=== PATIENT | male | born 1995 | race Caucasian/White ===

== ENCOUNTER 2017-07-03 23:11 | Emergency (ER) | payer OTHER ==
[~2017-07-03] VITALS: Ht 167.6 cm; Wt 5.9 kg
--- NOTE | 2017-07-03 23:16 | ED.REPORT ---
HPI-Chest Pain Under 40 Date of Service Jul 03, 2017 ED Provider: Jose Luis Patterson MD Pt is an otherwise healthy 22 year old male who presents to the ED complaining of sharp intermittent pleuritic chest pain onset 1 week ago. He c/o rash with itching on his chest onset 1 week ago. He denies cough, SOB, and extremity swelling. Pt reports that he has been doing "heavy lifting at work." Nursing Notes Stated Complaint: CHEST PAIN Chief Complaint: Chest pain Nursing Notes Reviewed: Yes Allergies: Coded Allergies: No Known Allergies (Unverified , 07/03/17) Scheduled PRN Ibuprofen (Ibuprofen) 400 Mg Tablet 400 MG PO QID PRN PRN For Pain General Time Seen by MD: 23:15 Chief Complaint Chest pain Hx Obtained From: Patient Arrived By: Walk-in Sudden in Onset?: No Onset Occurred: 1 week ago Symptom Duration: Since onset Location: : Substernal Quality: Sharp Radiation: : Does not radiate Severity: Current: Moderate Severity: Maximum: Moderate Recent Healthcare: No recent doctor visit, No recent hospitalization Similar Sx Previous: No Past Medical History Past Medical History Childhood asthma, resolved Past Surgical History None reported Smoking History Unknown if Ever Smoker Social History Other Social History: Good social support Ambulatory Status Independent Review of Systems Constitutional: Denies: Fever Respiratory: Denies: Non-productive cough, Shortness of breath Cardiovascular: Reports: Chest pain Musculoskeletal: Denies: Extremity swelling Skin: Reports Itching, Reports Rash Complete sys rev & neg: except as marked. Physical Exam Initial Vital Signs Vital Signs (First) Date Time Temp Pulse Resp B/P Pulse Ox O2 Delivery O2 Flow Rate FiO2 07/03/17 23:20 36.9 74 12 150/86 99 Room Air Initial VS: Reviewed Head / Eyes: Atraumatic, Normocephalic Neck: Supple, Full range of motion Abdomen / GI: Soft, Non-tender Extremities: Vascular intact, Neuro intact Skin: Warm, Dry, No cyanosis Neurologic: Alert, Oriented, Nonfocal Psychiatric: Mood/affect normal, Behavior normal General/Constitutional: Awake, Alert Respiratory / Chest: Atraumatic, Breath sounds NL, Breath sounds = bilat Cardiovascular: Heart rate NL, Regular rhythm, Heart sounds NL, No rubs Interpretation & Diagnostics ECG Interpretation ECG Interpretation: Sinus rhythm with a rate of 57 ST elevation, early repol pattern Time: 22:33 Interpreted by: ED physician X-Ray Chest Interpretation Chest Xray Interpretation: Blunting of angles bilaterally. Good inspiration. Clear lung vo. 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 Clearly related to respiratory cycle and otherwise negative. Chest x-ray is negative and EKG is unremarkable. Home with regular dosing of ibuprofen. Follow up with PCP. Source of Hx: Old records Re-Evaluation/Progress : Time of Eval: 00:07 Re-Evaluation/Progress Note: Pt rechecked. Informed pt of plan for discharge. Pt understands and agrees with plan for discharge. F/U instructions and RTER warnings given. All questions addressed. Counseled Regarding: Diagnosis, Need for follow-up, When/why to return to ED Discharge & Departure Primary Impression: Pleurisy Disposition: Home Discharge Condition All VS Reviewed: Yes Condition: Stable Patient Instructions: Pleurisy (ED) Additional Instructions: Cardiogram is normal, and your chest x-ray also. There is essentially zero likelihood that this is a cardiac incident. There is no evidence of pneumothorax or other dangerous cause. The pain with breathing is defined as pleurisy, and it is typically either mechanical strain or a viral infection. Either of these is a self-limited process. Ibuprofen 4 mg four times daily would be helpful in suppressing it. Follow-up with your doctor in the office. Return if any immediate issues such as difficulty breathing, actual shortness of breath, or other new symptoms of concern Referrals: [facility] (PCP) [facility] Attestation Portions of this note were transcribed by Chani Gregory. I, Dr. Patterson personally performed the history, physical exam and medical decision-making; I reviewed and confirmed the accuracy of the information in the transcribed note. Signed by: Bren Estrada, 07/03/17. copies to: Jose Luis Guevara MD Jul 03, 2017 23:15 Chani Donahue Jul 03, 2017 23:29
[2017-07-03 23:20] VITALS: BP 150/86; PULSE 74; RESP 12; O2SAT 99
[2017-07-04] MEDS ORDERED: IBUP400T22 PO (00:07)
--- NOTE | 2017-07-04 08:11 | DRSVH ---
PROCEDURE: X-RAY CHEST, TWO VIEWS ([id number]) INDICATIONS: anterior chest pain TECHNIQUE: 2 views of the chest were acquired. COMPARISON: None. FINDINGS: Surgical changes and devices: None. Lungs and pleura: No pleural effusions or pneumothorax. Lungs are clear. Mediastinum: Mediastinal contours are normal. Heart size is normal. Bones and chest wall: No suspicious bony abnormalities. Soft tissues appear unremarkable. IMPRESSION: No radiographic evidence of acute cardiopulmonary pathology. Dictated by: Negrito Pradhan M.D. on 07/04/2017 at 8:09 Approved by: Negrito Pradhan M.D. on 07/04/2017 at 8:09
== END 2017-07-04 00:35 | disposition home or self-care (01) ==
LOC: SED 23:11
DX: R09.1 Pleurisy (principal)